=== PATIENT | male | born 1985 | race Caucasian/White ===

== ENCOUNTER 2017-08-22 19:17 | Emergency (ER) | payer BC ==
[~2017-08-22] VITALS: Ht 167.6 cm; Wt 81.6 kg
[2017-08-22 19:43] VITALS: BP 118/90
[2017-08-22] MEDS ORDERED: SULFAMETH/TRIMETH 800/160 MG 1 UDTAB TABLET PO ONE ×2 (20:47→21:00)
[2017-08-22] MEDS ORDERED: CEPHALEXIN MONOHYDRATE 500 MG CAPSULE PO ONE ×2 (20:47→21:00)
[2017-08-22] MEDS ORDERED: IBUPROFEN 600 MG TABLET PO ONE ×2 (20:47→21:00)
[2017-08-22] MEDS ORDERED: TDAP [DIPH/PERTUSSIS/TET] 0.5 ML VIAL IM ONE ×2 (20:48→21:00)
== END 2017-08-22 21:24 | disposition home or self-care (01) ==
LOC: ER 19:23
DX: L03.116 Cellulitis of left lower limb (principal); L03.115 Cellulitis of right lower limb; F41.9 Anxiety disorder, unspecified; F32.9 Major depressive disorder, single episode, unspecified
CPT/HCPCS: 90715; A4606; Z7610

== ENCOUNTER 2018-06-07 22:31 | Emergency (ER) | payer BC, MEDICAID ==
[~2018-06-07] VITALS: Ht 180.3 cm; Wt 74.8 kg
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
[2018-06-07] MEDS ORDERED: HYDROCODONE/APAP 10/325MG 1 EA TABLET PO ONE (23:00)
[2018-06-07] MEDS ORDERED: HYDROCODONE/APAP 10/325MG 1 EA TABLET ONE (23:11)
[2018-06-07 23:15] LABS: BASOPHILS # (AUTO) 0.2 /CMM (0.0-0.2); BASOPHILS % (AUTO) 1.3 % (0.0-2.0); EOSINOPHILS % (AUTO) 7.5 % (0.0-6.0); HEMATOCRIT 41 % (39-51); HEMOGLOBIN 14.2 g/dL (13.5-17.5); LYMPHOCYTES # (AUTO) 2.6 /CMM (0.8-4.8); LYMPHOCYTES % (AUTO) 19.5 % (20.0-44.0); MEAN CORPUSCULAR HGB CONC 34 g/dl (31.0-36.0); MEAN CORPUSCULAR VOLUME 91 fL (80-96); MONOCYTES # (AUTO) 0.9 /CMM (0.1-1.30); MONOCYTES % (AUTO) 7.1 % (2.0-12.0); NEUTROPHILS # (AUTO) 8.5 /CMM (1.8-8.9); NEUTROPHILS % (AUTO) 64.6 % (43.0-81.0); PLATELET COUNT (AUTO) 595 /CMM (150-450); RED BLOOD CELL COUNT(AUTO) 4.54 MIL/uL (4.5-6.0); WHITE BLOOD COUNT (AUTO) 13.2 K/uL (4.3-11.0)
--- NOTE | 2018-06-07 23:16 | NUR ---
ATTEMPTED TO GIVE PT MEDICATION, PT SLEEPING COMFORTABLY.
[2018-06-07 23:25] LABS: CALCIUM, SERUM 8.8 mg/dL (8.5-10.1); CREATININE 0.8 mg/dL (0.6-1.3); POTASSIUM 3.5 mmol/L (3.5-5.1)
--- NOTE | 2018-06-08 00:07 | NUR ---
PT SNORING IN BED. NO ACUTE DISTRESS NOTED. WILL CONT TO MONITOR.
--- NOTE | 2018-06-08 01:17 | NUR ---
PAIN MED GIVEN PER MD ORDER. SOLDER SPRAYER AT BEDSIDE FOR SPLINT APPLICATION.
--- NOTE | 2018-06-08 02:34 | NUR ---
PT ASLEEP IN BED, VSS. NO COMPLAINTS AT THIS TIME. WILL CONT TO MONITOR.
--- NOTE | 2018-06-08 04:15 | NUR ---
PROVIDED PT WITH FOOD AND JUICE
--- NOTE | 2018-06-08 05:12 | NUR ---
Patient discharged to home in stable condition. TAP CARD AND CORRECTION PACKET PROVIDED. Written and verbal after care instructions given. Patient verbalizes understanding of instruction.
[2018-06-08 05:14] VITALS: BP 117/80
== END 2018-06-08 05:18 | disposition home or self-care (01) ==
LOC: ER 22:34
DX: S52.292A Other fracture of shaft of left ulna, initial encounter for closed fracture (principal); F10.129 Alcohol abuse with intoxication, unspecified; F41.9 Anxiety disorder, unspecified; F32.9 Major depressive disorder, single episode, unspecified; Y90.9 Presence of alcohol in blood, level not specified; Z86.19 Personal history of other infectious and parasitic diseases; Z60.2 Problems related to living alone; W18.09XA Striking against other object with subsequent fall, initial encounter; Y93.89 Activity, other specified; Y92.89 Other specified places as the place of occurrence of the external cause; Y99.8 Other external cause status
CPT/HCPCS: 29125; 36415; 73090; 80048; 80307; 85025; A4606; G0480

== ENCOUNTER 2018-09-24 07:51 | Emergency (ER) | payer MEDICAID, OTHER ==
[~2018-09-24] VITALS: Ht 167.6 cm; Wt 72.1 kg
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
--- NOTE | 2018-09-24 08:01 | NUR ---
PT TO ER BED 11, HOOKED TO MONITOR, CHANGED TO GOWN, WANDED BY SECURITY SREE ARIAS. AWAITING MD MORALES.
--- NOTE | 2018-09-24 08:27 | NUR ---
HAND INSPECTOR AT BEDSIDE FOR XRAY.
[2018-09-24] MEDS ORDERED: HYDROCODONE/APAP 5/325MG 1 EACH TABLET ONE (08:29)
[2018-09-24] MEDS ORDERED: KETOROLAC TROMETHAMINE 15 MG/ML VIAL ONE (08:29)
[2018-09-24] MEDS ORDERED: KETOROLAC TROMETHAMINE INJ 30 MG/ML VIAL IV ONE (08:30)
[2018-09-24] MEDS ORDERED: HYDROCODONE/APAP 5/325MG 1 EACH TABLET PO ONE (08:30)
[2018-09-24] MEDS ORDERED: IV NS 0.9% 1,000 ML BAG IV ONE (08:30)
[2018-09-24 08:33] LABS: BASOPHILS # (AUTO) 0.1 /CMM (0.0-0.2); BASOPHILS % (AUTO) 0.7 % (0.0-2.0); EOSINOPHILS % (AUTO) 10.4 % (0.0-6.0); HEMATOCRIT 46 % (39-51); HEMOGLOBIN 15.7 g/dL (13.5-17.5); LYMPHOCYTES # (AUTO) 1.4 /CMM (0.8-4.8); LYMPHOCYTES % (AUTO) 16.4 % (20.0-44.0); MEAN CORPUSCULAR HGB CONC 34 g/dl (31.0-36.0); MEAN CORPUSCULAR VOLUME 92 fL (80-96); MONOCYTES # (AUTO) 0.8 /CMM (0.1-1.30); MONOCYTES % (AUTO) 9.8 % (2.0-12.0); NEUTROPHILS # (AUTO) 5.4 /CMM (1.8-8.9); NEUTROPHILS % (AUTO) 62.7 % (43.0-81.0); PLATELET COUNT (AUTO) 354 /CMM (150-450); RED BLOOD CELL COUNT(AUTO) 5.03 MIL/uL (4.5-6.0); WHITE BLOOD COUNT (AUTO) 8.6 K/uL (4.3-11.0)
[2018-09-24 08:40] LABS: CALCIUM, SERUM 8.7 mg/dL (8.5-10.1); CARBON DIOXIDE 32 mmol/L (21-32); CHLORIDE 106 mmol/L (98-107); CREATININE 0.9 mg/dL (0.6-1.3); GLUCOSE 79 mg/dL (74-106); POTASSIUM 3.9 mmol/L (3.5-5.1); SODIUM SERUM 145 mmol/L (136-145); UREA NITROGEN, BLOOD 5 mg/dL (7-18)
[2018-09-24] MEDS ORDERED: CEFTRIAXONE 1GM BAG (ER ONLY) 50 ML IV ONE (08:42)
[2018-09-24 08:45] LABS: ACETAMINOPHEN < 2 ug/ml (10-30); ALCOHOL, BLOOD 240 mg/dL (0-0); SALICYLATE < 2.8 mg/dL (2.8-20.0)
[2018-09-24] MEDS ORDERED: VANCOMYCIN 1 GM in IV D5W 250 ML IV ONE (09:00)
[2018-09-24] MEDS ORDERED: CEFTRIAXONE 1GM BAG (ER ONLY) 1 GM/50 ML PIGGYBACK IV ONE (09:00)
[2018-09-24] MEDS ORDERED: LIDOCAINE 1%-EPI 1:100,000 20 ML VIAL ONE (10:47)
[2018-09-24 11:33] LABS: BILIRUBIN,DIRECT 0.1 mg/dL (0.0-0.2); BILIRUBIN,TOTAL 0.3 mg/dL (0.2-1.0)
--- NOTE | 2018-09-24 12:28 | NUR ---
INCISION AND DRAINAGED DONE BY ASHA SEGURA
--- NOTE | 2018-09-24 13:11 | NUR ---
IV removed. Catheter intact and site benign. Pressure and 4x4 applied to site. No bleeding noted. Patient discharged to home in stable condition. Written and verbal after care instructions given. Patient verbalizes understanding of instruction.
[2018-09-24 13:12] VITALS: BP 101/58
== END 2018-09-24 13:14 | disposition home or self-care (01) ==
LOC: ER 07:52
DX: L03.114 Cellulitis of left upper limb (principal); F10.129 Alcohol abuse with intoxication, unspecified; F41.9 Anxiety disorder, unspecified; F32.9 Major depressive disorder, single episode, unspecified; F19.10 Other psychoactive substance abuse, uncomplicated; Y90.8 Blood alcohol level of 240 mg/100 ml or more; Z98.890 Other specified postprocedural states; Z86.19 Personal history of other infectious and parasitic diseases; Z60.2 Problems related to living alone
CPT/HCPCS: 10060; 36415; 73090; 80048; 80307; 80329; 82247; 82248; 83605 ×2; 85025; 85652; 86140; 87040; 96365; 96368; 96375; 99284; A6403 ×2; A6407; J0696; J1885; J3370; J3490; J7030; J7060; 80305; G0480

== ENCOUNTER 2020-03-15 18:50 | Emergency (ER) | payer MEDICAID, OTHER ==
--- NOTE | 2020-03-15 20:00 | NUR ---
called pt in wr. no one responded in wr. will follow up
--- NOTE | 2020-03-15 20:07 | NUR ---
called pt in wr x 3. no one responded. will follow up
--- NOTE | 2020-03-15 20:17 | NUR ---
called pt in wr. no one responded.
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
== END 2020-03-15 20:58 | disposition left against medical advice (07) ==
LOC: ER 18:53
DX: Z53.21 Procedure and treatment not carried out due to patient leaving prior to being seen by health care provider (principal)

== ENCOUNTER 2020-09-09 16:52 | Emergency (ER) | payer MEDICAID, OTHER ==
[~2020-09-09] VITALS: Ht 167.6 cm; Wt 79.8 kg
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
--- NOTE | 2020-09-09 17:02 | NUR ---
EVELYN DANIEL AT BEDSIDE.
--- NOTE | 2020-09-09 17:15 | NUR ---
SHOT BAGGER AT BEDSIDE FOR BLOOD DRAW.
[2020-09-09 17:21] LABS: BASOPHILS % (AUTO) 0.4 % (0.0-2.0); EOSINOPHILS % (AUTO) 0.7 % (0.0-6.0); HEMATOCRIT 44 % (39-51); HEMOGLOBIN 15.2 g/dL (13.5-17.5); LYMPHOCYTES # (AUTO) 0.7 K/uL (0.8-4.8); LYMPHOCYTES % (AUTO) 7.4 % (20.0-44.0); MEAN CORPUSCULAR HGB CONC 35 g/dl (31.0-36.0); MEAN CORPUSCULAR VOLUME 94 fL (80-96); MONOCYTES % (AUTO) 10.6 % (2.0-12.0); NEUTROPHILS # (AUTO) 7.5 K/uL (1.8-8.9); NEUTROPHILS % (AUTO) 80.9 % (43.0-81.0); PLATELET COUNT (AUTO) 261 K/uL (150-450); RED BLOOD CELL COUNT(AUTO) 4.67 MIL/uL (4.5-6.0); WHITE BLOOD COUNT (AUTO) 9.2 K/uL (4.3-11.0)
[2020-09-09] MEDS: IV NS 0.9% 1,000 ML BAG IV ONE ×2 (17:25→18:34)
[2020-09-09 17:29] LABS: CALCIUM, SERUM 8.5 mg/dL (8.5-10.1); CREATININE 1.1 mg/dL (0.6-1.3); POTASSIUM 3.4 mmol/L (3.5-5.1)
[2020-09-09 17:34] LABS: ALBUMIN 2.7 g/dL (3.4-5.0); BILIRUBIN,DIRECT 0.3 mg/dL (0.0-0.2); TOTAL PROTEIN, SERUM 6.3 g/dL (6.4-8.2)
[2020-09-09] MEDS ORDERED: FOLIC ACID 1 MG TABLET ONE (18:23)
[2020-09-09] MEDS ORDERED: MULTIVIT W/MINERALS 1 TAB TABLET ONE (18:24)
[2020-09-09] MEDS ORDERED: CHLORDIAZEPOXIDE HCL 25 MG CAPSULE ONE (18:24)
[2020-09-09] MEDS: FOLIC ACID 1 MG TABLET PO ONE (18:33)
[2020-09-09] MEDS: MULTIVITAMINS,THERAGRAN 1 UDTAB TABLET PO ONE (18:33)
[2020-09-09] MEDS: CHLORDIAZEPOXIDE HCL 25 MG CAPSULE PO ONE (18:34)
[2020-09-09] MEDS ORDERED: Magnesium 1GM/D5W 100ML PREMIX 100 ML IV ONE (18:40)
[2020-09-09] MEDS ORDERED: ACETAMINOPHEN ES 500 MG TABLET ONE (18:40)
[2020-09-09] MEDS: Magnesium 1GM/D5W 100ML PREMIX 100 ML IV ONE (18:41)
[2020-09-09] MEDS: ACETAMINOPHEN 325 MG TABLET PO ONE (18:41)
[2020-09-09] MEDS: Thiamine 100 MG in IV D5W 50 ML IV ONE (18:48)
--- NOTE | 2020-09-09 19:01 | NUR ---
REPORT TO JAMIE SALMERON FOR [facility].
[2020-09-09] MEDS ORDERED: CHLO25CA22 PO (19:46)
[2020-09-09] MEDS ORDERED: POTASSIUM CHLORIDE 20 MEQ TAB.PRT.SR PO ONE (19:49)
[2020-09-09] MEDS: POTASSIUM CHLORIDE 20 MEQ TAB.PRT.SR PO ONE (20:07)
--- NOTE | 2020-09-09 20:07 | NUR ---
PT PROVIDED WITH A MEAL. PT IS MARKED FOR DISCHARGE BUT PROVIDER OK TO HAVE PT REST FOR A BIT. PT EATING AT THIS TIME
--- NOTE | 2020-09-09 20:52 | NUR ---
Patient discharged to home in stable condition. Written and verbal after care instructions given. Patient verbalizes understanding of instruction.IV removed. Catheter intact and site benign. Pressure and 4x4 applied to site. No bleeding noted. Pt ambulatory with a steady gait
--- NOTE | 2020-09-09 20:52 | NUR ---
PT LEFT WITHOUT SIGNING ACI AND HOMELESS WAIVER. PT WAS GIVEN VERBAL ACI AND WAS PROVIDER WITH MEAL RESOURCE.
[2020-09-09 20:54] VITALS: BP 129/82
== END 2020-09-09 20:56 | disposition home or self-care (01) ==
LOC: ER 16:58
DX: F10.239 Alcohol dependence with withdrawal, unspecified (principal); E86.0 Dehydration; A08.4 Viral intestinal infection, unspecified; F41.9 Anxiety disorder, unspecified; F32.9 Major depressive disorder, single episode, unspecified; Z98.890 Other specified postprocedural states; Z60.2 Problems related to living alone; Y90.9 Presence of alcohol in blood, level not specified
CPT/HCPCS: 36415; 80048; 80076; 80320; 83735; 85025; 93005; 96361; 96365; 96368; 99284; J3411; J3475; J7030 ×2; J7060; G0480